=== PATIENT | female | born 1955 | race Two or more races ===

== ENCOUNTER 2022-08-09 13:01 | Outpatient (CLI) | payer MEDICARE, BC ==
[2022-08-09] MEDS ORDERED: COLLAGENASE 5 GM TUBE UD TP ONE (13:44)
== END 2022-08-09 23:59 | disposition home health service (06) ==
LOC: WOU 13:01
PROVIDERS: ATTEND Podiatrist Foot & Ankle Surgery
DX: I70.243 Atherosclerosis of native arteries of left leg with ulceration of ankle (principal); L97.322 Non-pressure chronic ulcer of left ankle with fat layer exposed
CPT/HCPCS: 87070; G0463

== ENCOUNTER → 2022-08-16 | Outpatient (CLI) | payer MEDICARE, BC ==
[~2022-08-16] MED LIST: COLLAGENASE 5 GM TUBE UD TP ONE; LIDOCAINE SOLN 4% 50 ML BOTTLE ONE
== END | disposition home health service (06) ==
LOC: WOU 12:44
PROVIDERS: ATTEND Podiatrist Foot & Ankle Surgery
DX: I70.243 Atherosclerosis of native arteries of left leg with ulceration of ankle (principal); L97.322 Non-pressure chronic ulcer of left ankle with fat layer exposed; L03.116 Cellulitis of left lower limb
CPT/HCPCS: 11042

== ENCOUNTER 2022-08-30 12:30 | Outpatient (CLI) | payer MEDICARE, BC | END 2022-08-30 23:59 | disposition home or self-care (01) | LOC: WOU 12:30 | PROVIDERS: ATTEND Podiatrist Foot & Ankle Surgery | DX: I70.243 Atherosclerosis of native arteries of left leg with ulceration of ankle (principal); L97.326 Non-pressure chronic ulcer of left ankle with bone involvement without evidence of necrosis; L03.116 Cellulitis of left lower limb | CPT/HCPCS: G0463 ==

== ENCOUNTER 2022-09-06 12:56 | Outpatient (CLI) | payer MEDICARE, BC | END 2022-09-06 23:59 | disposition home or self-care (01) | LOC: WOU 12:56 | PROVIDERS: ATTEND Podiatrist Foot & Ankle Surgery | DX: L97.329 Non-pressure chronic ulcer of left ankle with unspecified severity (principal); M25.472 Effusion, left ankle; M86.9 Osteomyelitis, unspecified | CPT/HCPCS: 73721-TC ==